=== PATIENT | female | born 1970 | race Caucasian/White ===

== ENCOUNTER 2020-09-29 18:40 | Inpatient (IN) | payer OTHER ==
[~2020-09-29] VITALS: Ht 165.1 cm; Wt 88.0 kg
[2020-09-29 18:50] VITALS: BP 144/76
[2020-09-29] MEDS ORDERED: CHANTIX1 EACH PO (18:54)
[2020-09-29] MEDS ORDERED: SUPER THERAVIT1 EACH PO (18:55)
[2020-09-29 20:00] LABS: ABSOLUTE NEUTROPHILS 11.7 thou/uL (1.4-8.2); BASOPHILS 0.3 % (0.0-2.0); EOSINOPHILS 0.4 % (0.0-3.0); HEMATOCRIT 38.2 % (37.0-47.0); MCHC 34.1 g/dL (28.0-37.0); MCV 96.7 fL (80.0-100.0); MONOCYTES 5.2 % (1.0-8.0); PLATELET COUNT 392 thou/uL (150-400); POLYS 74.1 % (36.0-66.0); RBC 3.95 mil/uL (4.20-5.00); WBC 15.8 thou/uL (4.0-11.0)
[2020-09-29 20:12] LABS: CALCIUM 9.3 mg/dL (8.5-10.1); POTASSIUM 3.4 mmol/L (3.5-5.1)
[2020-09-29 20:20] LABS: ALBUMIN 3.6 g/dL (3.4-5.0); TOTAL BILIRUBIN 0.2 mg/dL (0.2-1.0); TOTAL PROTEIN 7.5 g/dL (6.4-8.2)
[2020-09-30 00:07] VITALS: BP 147/70
--- NOTE | 2020-09-30 02:24 | NUR ---
ADMISSION ASSESSMENT COMPLETED.PT ALERT AND ORIENTED. LEFT FOOT ELEVATED ON PILLOW. ICE PAKS APPLIED. LEFT FOOT TOES WITH GOOD CSM.PT HAD ONE EPISODE OF NAUSEA AND THEN FELT BETTER AFTERWARDS NOT NEEDING ANTI- EMETICS. AFEBRILE. REPORTS SOME MILD THROAT DISCOMFORT.NO COUGH OR SOA. REMAINS ON ROOM AIR SATTING AT 100%PT USING BEDPAN AND SO FAR HAS VOIDED X 1.IVF INFUSING. CALL LIGHT AND NEEDED ITEMS WITHIN REACH.
[2020-09-30 04:28] VITALS: BP 139/70
[2020-09-30 06:18] LABS: HEMATOCRIT 44.3 % (37.0-47.0); HEMOGLOBIN 14.6 gm/dL (12.0-15.0); MCH 32.2 pg (26.0-34.0); MCV 97.6 fL (80.0-100.0); RBC 4.54 mil/uL (4.20-5.00); WBC 19.4 thou/uL (4.0-11.0)
[2020-09-30 06:48] LABS: CALCIUM 9.7 mg/dL (8.5-10.1); CREATININE 0.9 mg/dL (0.6-1.0); POTASSIUM 3.8 mmol/L (3.5-5.1)
--- NOTE | 2020-09-30 07:17 | EKG ---
[address] [address] ELECTROCARDIOGRAM REPORT Name: JUAN MRAFFY Room #: 444-P ADM IN M.R.#: [id number] Admission: 09/29/20 Attend Phys: Manish Silva MD Discharge: Date of : 68 Report #: [id number] [facility] ED Test Date: 2020-09-29 Test Time: 19:29:09 Pat Name: RAFFY MCGOWAN Department: Room: 444 Gender: F Tacker Off: jefry : 1970 Requested By: Ramses Dalton Order Number: [id number] MD: Henry Garcia Measurements Intervals [place] Rate: 75 P: 35 IL: 146 QRS: 39 QRSD: 90 T: 37 QT: 411 QTc: 460 Interpretive Statements Sinus rhythm Abnormal R-wave progression, early transition Baseline wander in lead(s) II,III,aVR,aVL,aVF,V1,V3,V6 No previous ECG available for comparison Electronically Signed On 09-30-2020 7:17:43 [employer] by Henry Garcia [email or web address] <ELECTRONICALLY SIGNED> By: Henry Garcia MD, [facility] 09/30/20716 192 28 Henry Garcia MD, [facility] /EPI
[2020-09-30 07:30] VITALS: BP 149/69
--- NOTE | 2020-09-30 09:46 | NUR ---
ASSESSMENT: CM REVIEWED CHART AND SPOKE WITH PT. PT HAS LEFT ANKLE FX. PT REPORTS LIVING IN A HOUSE WITH HER AND DAUGHTER. PT REPORTS ABOUT 9 STEPS TO ENTER AND ABOUT 15 STEPS WITH HANDRAIL TO HER BEDROOM. PT REPORTS SHE HAS ALOT OF DME ALREADY AT HOME INCLUDING A CANE, WALKER, CRUTCHES, SCOOTER, AND IS BORROWING A KNEE SCOOTER. PHYSICAL THERAPY IS WORKING WITH PATIENT AND WILL MAKE SURE SHE IS SAFE FOR STEPS. PT REPORTS NO HX OF HH IN THE PAST. CM WILL CONTINUE TO FOLLOW TO ASSIST NEEDED AND WILL LIKELY DISCHARGE HOME LATER TODAY.
--- NOTE | 2020-09-30 10:56 | NUR ---
ASSESSMENT: CM REVIEWED CHART AND SPOKE WITH PT. PT HAS LEFT ANKLE FX. PT REPORTS LIVING IN A HOUSE WITH HER AND DAUGHTER. PT REPORTS ABOUT 9 STEPS TO ENTER AND ABOUT 15 STEPS WITH HANDRAIL TO HER BEDROOM. PT REPORTS SHE HAS ALOT OF DME ALREADY AT HOME INCLUDING A CANE, WALKER, CRUTCHES, SCOOTER, AND IS BORROWING A KNEE SCOOTER. PHYSICAL THERAPY IS WORKING WITH PATIENT AND WILL MAKE SURE SHE IS SAFE FOR STEPS. PT REPORTS NO HX OF HH IN THE PAST. CM WILL CONTINUE TO FOLLOW TO ASSIST NEEDED.
--- NOTE | 2020-09-30 11:01 | NUR ---
Assumed care of pt at 0700. Pain controlled with prn pain meds. Surgery dressing in place. Capilary refill < 3sec. A&ox4. Worked with physical therapy. IVF and IV antibiotcs infusing. Family at bedside. Fall precautions in place. Will continue to monitor.
[2020-09-30 15:45] VITALS: BP 127/53
[2020-09-30 19:53] VITALS: BP 128/67
--- NOTE | 2020-10-01 04:01 | NUR ---
SPLINT IN PLACE TO LLE. PT USES BSC- WITH ASSIT OF WALKER. REMAINS NWB TO LLE. PT GETTING NORCO Q4 PRN FOR PAIN AND ITS WORKING WELL.DENIES NAUSEA. SHE IS AFEBRILE.
[2020-10-01 07:19] VITALS: BP 146/72
[2020-10-01 10:28] LABS: HEMATOCRIT 39.5 % (37.0-47.0); MCH 32.2 pg (26.0-34.0); MCHC 32.9 g/dL (28.0-37.0); MCV 97.8 fL (80.0-100.0); RBC 4.04 mil/uL (4.20-5.00); RDW 13.2 % (10.5-14.5); WBC 17.5 thou/uL (4.0-11.0)
[2020-10-01 16:49] VITALS: BP 140/65
--- NOTE | 2020-10-01 19:05 | NUR ---
ASSUMED CARE OF THE PATIENT AT 0715, PATIENT ALERT AND ORIENTED X 4. PATIENT HAS HAD PAIN ISSUES MOST OF THE SHIFT. DR ADAMS NOTIFIED, NEW ORDERS FOR OXYCODONE 1-2 TABLETS Q4HRS, AND FENTANYL 25-50 MCG IV Q2HRS. PATIENT HAS HAD GOOD PAIN RELIEF FROM NEW PAIN ORDERS. AT END OF THE SHIFT, PATIENT RESTING WELL. PATIENT HAS BEEN UP TO THE BSC WITH ASSIST 1 THROUGHOUT THE SHIFT. PT/HARI WORKED WITH THE PATIENT, AHD SHE DID WELL, PT WILL SEE THE PATIENT IN THE AM PRIOR TO DISCHARGE. PATIENT HAS RIGHT AC IV IN PLACE, RECEIVED IV ABX X 1 THIS SHIFT. WILL CONTINUE TO MONITOR.
[2020-10-01 20:18] VITALS: BP 126/52
[2020-10-02 04:26] VITALS: BP 145/75
--- NOTE | 2020-10-02 06:16 | NUR ---
PT BEEN GETTING FENTANYL AND OXYCODONE THEY ARE AVAILABLE.REPORTS RELIEF OF PAIN WITH BOTH MEDICATIONS. SLEEPING ON AND OFF. ELEVATING LLE. ABLE TO MOVE TOES AND WITH GOOD CAP REFILL.PT STILL C/O HEEL HURTING. DENIES NAUSEA.VITALS STABLE. PIVOTS WELL TO THE BSC. IT APPEARS LIKE SHE HAD A GOOD NIGHT.
[2020-10-02 07:55] VITALS: BP 139/71
--- NOTE | 2020-10-02 10:46 | O ---
[facility] [place] [address] OPERATIVE REPORT Name: RAFFY MCGOWAN Room #: 444-P ADM IN M.R.#: [id number] Admission: 09/29/20 Attend Phys: Fermin Obrien MD Discharge: Date of : 68 Report #: [id number] THIS REPORT FOR: cc: FERNANDO - No family physician/PCP FERNANDO - No family physician/PCP Ramses Heard MD ~ DATE OF SERVICE: 09/29/2020 PREOPERATIVE DIAGNOSIS: Left type 1 open ankle fracture dislocation, trimalleolar. POSTOPERATIVE DIAGNOSIS: Left type 1 open ankle fracture dislocation, trimalleolar. PROCEDURES: 1. Debridement and irrigation of left type 1 open ankle fracture dislocation. 2. ORIF, medial and lateral malleolus. 3. Closed treatment posterior malleolus fracture, left ankle. SURGEON: Ramses Heard MD. AUTO RENTAL SUPERVISOR: Hafsa Galvin PA-C. INDICATIONS FOR AUTO RENTAL SUPERVISOR: Throughout the case, extensive retraction and manipulation as well as maintenance of reduction was required. This was afforded to me by my night assistant. ANESTHESIA: General. IMPLANTS: [employer] 5-hole lateral distal fibular locking plate with a combination of cortical and cancellous screws and 2 cannulated 4.0 partially threaded screws for medial malleolus fixation. TOURNIQUET TIME: 55 minutes. ESTIMATED BLOOD LOSS: 10 mL. COMPLICATIONS: None. SPECIMENS: None. CONDITION UPON LEAVING THE OPERATING ROOM: Stable. INDICATIONS FOR PROCEDURE: The patient is a 50-year-old female who slipped on her stairs this evening and twisted her left ankle. She presented to the ER [facility] [address] [place] [address] OPERATIVE REPORT Name: RAFFY MCGOWAN Room #: 444-P ADM IN M.R.#: [id number] Admission: 09/29/20 Attend Phys: Fermin Obrien MD Discharge: Date of : 68 Report #: [id number] with significant deformity and a 5 mm wound on the medial aspect of her ankle. This was partially reduced in the Emergency Room by the Emergency Room physician and after discussion with her and concern for an open fracture, we elected for emergent debridement and irrigation and ORIF of the left ankle. DESCRIPTION OF PROCEDURE: Risks, benefits, alternatives, complications were discussed in detail with the patient including but not limited to risk of anesthesia, risk of damage to nerves, arteries, blood vessels, risk for infection, bleeding, risk for ankle pain, malunion, nonunion and need for reoperation. Informed consent was obtained from the patient. Left leg was appropriately marked in the preoperative holding area. IV Ancef was given for preoperative antibiotics. She was brought to the operating room and placed in supine position on operating room table. General anesthesia was induced without complication. Tourniquet was placed on the left thigh. Left lower extremity was prepped and draped in normal sterile fashion. Timeout was performed after properly identifying the patient and procedure as well as the instrumentation. All in the operating room were in agreement. Left lower extremity was elevated, tourniquet was inflated. Tourniquet time was 55 minutes. The medial wound was then opened with 10 blade. The skin was excised and the medial malleolus fracture was thoroughly irrigated with pulse lavage. After thorough irrigation, a lateral incision over the distal fibula was made with 10 blade through the skin. Dissection was taken down sharply to the fibula and anterior, posterior resection was made. Fracture was identified and cleaned out, held reduced with [id number] reduction forceps. An anterior to posterior compression screw was then placed with good compression across the fracture site. A 5-hole distal lateral fibular locking plate was placed and 3 proximal cortical screws and 4 distal cancellous screws were all placed in appropriate length. After this, attention was turned to the medial malleolus fracture. This was held reduced with [id number] reduction forceps and threaded K-wire was placed up into the tibia. Fluoroscopic imaging was verified to have adequate placement of the K-wires. The distal portion of the bone was drilled with the cannulated drill and two 50 mm partially threaded 4.0 cancellous screws were placed. After this, final fluoroscopic images were taken to verify adequate fracture reduction and placement of hardware. Intraoperative external rotation stress ____ were performed that showed a stable syndesmosis. The wounds were thoroughly irrigated with normal saline. Deep tissue was closed with 0 Vicryl, skin was closed with 2-0 Vicryl and 3-0 nylon. Soft dressings were applied and a short leg splint was applied. The patient tolerated this procedure well and went to recovery room under care of anesthesia postoperatively. <ELECTRONICALLY SIGNED> By: Ramses Heard MD 10/02/20 [id number] Ramses Heard MD /armando
[2020-10-02] MEDS ORDERED: PERCOCET PO (12:05)
[2020-10-02 12:15] VITALS: BP 139/71
--- NOTE | 2020-10-02 12:30 | NUR ---
PT ASSESSED AT START OF SHIFT. LT LEG PAIN BETTER. LEG ELEVATED HIGHER. WORKED W/ PHYSICAL THERAPIST AND DID WELL. OK'D FOR DC TODAY. DR. ADAMS IN TO TALK W/ PT AND . MED FOR PAIN W/ GOOD RELIEF. GOOD CIRC/SENS TO TOES. PT DISCHARGED AT THIS TIME W/ ALL BELONGINGS.
[2020-10-02] MEDS ORDERED: NEURONTIN 300M300 M2 PO (14:02)
[2020-10-02] MEDS ORDERED: ZOFRAN ODT4 MG PO (14:02)
== END 2020-10-02 12:30 | disposition home or self-care (01) | DRG 492 ==
LOC: ER 18:40 → 4S 19:55 → EROBS 19:55 → TBA 21:30 → 4S 09-30 00:50
PROVIDERS: Emergency Medicine; Nurse Practitioner Family; ADMIT Internal Medicine; ATTEND Internal Medicine
PROC: 0QSHXZZ Reposition Left Tibia, External Approach (ICD-10-PCS; principal; 2020-09-29)
PROC: 0QSH04Z Reposition Left Tibia with Internal Fixation Device, Open Approach (ICD-10-PCS; principal; 2020-09-29)
PROC: 0QSK04Z Reposition Left Fibula with Internal Fixation Device, Open Approach (ICD-10-PCS; principal; 2020-09-29)
PROC: 0SSG0ZZ Reposition Left Ankle Joint, Open Approach (ICD-10-PCS; principal; 2020-09-29)
DX: S82.852B Displaced trimalleolar fracture of left lower leg, initial encounter for open fracture type I or II (principal); S82.432B Displaced oblique fracture of shaft of left fibula, initial encounter for open fracture type I or II; W18.39XA Other fall on same level, initial encounter; D72.829 Elevated white blood cell count, unspecified; Z20.822 Contact with and (suspected) exposure to COVID-19; Y93.89 Activity, other specified; Y92.89 Other specified places as the place of occurrence of the external cause; Y99.8 Other external cause status; Z87.891 Personal history of nicotine dependence
CPT/HCPCS: 10195; 50101; 50386; 52124; 53078; 56527; 56528; 57091; 57103; 57180; 62110; 62900

== ENCOUNTER → 2020-11-02 | Outpatient (CLI) | payer OTHER ==
[~2020-11-02] MED LIST: CHANTIX1 EACH PO; NEURONTIN 300M300 M2 PO; PERCOCET PO; SUPER THERAVIT1 EACH PO; ZOFRAN ODT4 MG PO
== END ==
LOC: NUC 09:51
PROVIDERS: ATTEND Orthopaedic Surgery
DX: M81.0 Age-related osteoporosis without current pathological fracture (principal)